=== PATIENT | male | born 1975 | race American Indian/Alaskan Native ===

== ENCOUNTER 2018-09-19 15:18 | Emergency (ER) | payer MEDICAID, MEDICARE ==
[2018-09-19 15:19] VITALS: BMI 26.9
--- NOTE | 2018-09-19 15:58 | ED PDOC ---
HPI: Psych/Substance Abuse Time Seen by Provider: 09/19/18 15:57 Chief Complaint (Nursing): Psychiatric Evaluation Chief Complaint (Provider): psych eval ED Caveat: Uncooperative History Per: Patient History/Exam Limitations: clinical condition, other Onset/Duration Of Symptoms: Days Current Symptoms Are (Timing): Still Present Suicide/Self Injury Attempted (Context): None Modifying Factor(s): None Associated Symptoms: Anger, Anxiety, Agitation, Depression, Paranoia. denies: Suicidal Thoughts, Suicidal Plan Additional History Per: Patient Additional Complaint(s): Pt presents via Pt is from [facility] with issues of exaccerbated anger and fighting in the [facility]; pt is well known to this ED and to the crisis counselors and has had several admits to psychiatric facilities that lasted greater than one year. Pt is uncooperative and provides no additional history Past Medical History Reviewed: Historical Data, Nursing Documentation, Vital Signs Vital Signs: Last Vital Signs Temp 98.0 F 09/19/18 15:26 Pulse 82 09/19/18 15:26 Resp 18 09/19/18 15:26 BP 151/85 H 09/19/18 15:26 Pulse Ox 97 09/19/18 15:26 - Medical History PMH: Anxiety, Asthma, Bipolar Disorder, Depression, HTN, Schizophrenia, Seizures (since he was 12 yo) Denies: Diabetes, Hepatitis, HIV, Chronic Kidney Disease, Sexually Transmitted Disease - Family History Family History: States: Unknown Family Hx - Immunization History Hx Tetanus Toxoid Vaccination: No Hx Influenza Vaccination: No Hx Pneumococcal Vaccination: No - Home Medications Home Medications: Ambulatory Orders Medication Instructions Recorded Benztropine [Cogentin] 1 mg PO AMHS #60 tab 11/16/17 Divalproex [Depakote DR(*BID*)] 500 mg PO AMHS #60 tcp 11/16/17 Nicotine [Nicotine Patch] 14 each TD DAILY #30 patch.dysq 11/16/17 Phenytoin, Extended [Dilantin] 100 mg PO TID #90 cer 11/16/17 clonazePAM [Klonopin] 1 mg PO AMHS #60 tab 11/16/17 risperiDONE [RisperDAL Tab] 2 mg PO AMHS #60 tab 11/16/17 - Allergies Allergies/Adverse Reactions: Allergies Allergy/AdvReac Type Severity Reaction Status Date / Time No Known Allergies Allergy Verified 11/07/17 20:52 Review of Systems Review Of Systems: ROS cannot be obtained secondary to pt's inabilty to answer questions. Physical Exam - Reviewed Nursing Documentation Reviewed: Yes Vital Signs Reviewed: Yes - Physical Exam Appears: Positive for: Well, No Acute Distress Head Exam: Positive for: ATRAUMATIC, NORMAL INSPECTION Skin: Positive for: Normal Color, Warm, Dry Neck: Positive for: Normal, Painless ROM, Supple. Negative for: Decreased ROM Cardiovascular/Chest: Positive for: Regular Rate, Rhythm, Chest Non Tender. Negative for: Edema, Gallop, Bradycardia, Tachycardia, Friction Rub Respiratory: Positive for: Normal Breath Sounds. Negative for: Decreased Breath Sounds, Accessory Muscle Use, Crackles, Rales, Rhonchi, Stridor, Wheezing Pulses-Carotid (L): 2+ Pulses-Carotid (R): 2+ - Laboratory Results Result Diagrams: 09/19/18 17:34 09/19/18 17:34 - ECG O2 Sat by Pulse Oximetry: 97 Medical Decision Making Medical Decision Making: Psych eval [place] [facility] [place] - Clinical Impression Clinical Impression: Schizoaffective disorder - Patient ED Disposition Is Patient to be Admitted: Yes Doctor Will See Patient In The: Hospital - Disposition Disposition: Transfer of Care Disposition Time: 20:13 Condition: STABLE Forms: A [facility] (Sinhala) Patient Signed Over To: Brigitte Porter
[2018-09-19 17:50] LABS: BASO % 0.4 % (0.0-2.0); EOS # 0.2 K/uL (0.0-0.7); EOS % 3.2 % (0.0-4.0); HEMOGLOBIN 14.2 g/dL (12.0-18.0); LYMPH # 1.9 K/uL (1.0-4.3); LYMPH % 32.9 % (20.0-40.0); MEAN CELL VOLUME 97.7 fl (80.0-94.0); MEAN CORPUSCULAR HEMOGLOBIN 32.4 pg (27.0-31.0); MEAN CORPUSCULAR HGB CONC 33.2 g/dL (33.0-37.0); MEAN PLATELET VOLUME 8.1 fl (7.2-11.7); MONO # 0.5 K/uL (0.0-0.8); MONO % 8.7 % (0.0-10.0); NEUT # 3.2 K/uL (1.8-7.0); NEUT % 54.8 % (50.0-75.0); NRBC % 0.1 % (0.0-0.0); RBC 4.37 Mil/uL (4.40-5.90); RED CELL DISTRIBUTION WIDTH 13.8 % (11.5-14.5); WHITE BLOOD COUNT 5.9 K/uL (4.8-10.8)
[2018-09-19 17:52] LABS: SQUAMOUS EPITHIAL < 1 /hpf (0-5); URINE AMORPHOUS SEDIMENT RARE /ul (<OCC); URINE BACTERIA RARE (<OCC); URINE BILIRUBIN NEGATIVE (NEGATIVE); URINE BLOOD NEGATIVE (NEGATIVE); URINE CLARITY SLIGHTY-CLOUDY (Clear); URINE COLOR YELLOW (YELLOW); URINE GLUCOSE (UA) NEG (NEGATIVE); URINE LEUKOCYTE ESTERASE NEG Leu/uL (Negative); URINE PROTEIN NEGATIVE (NEGATIVE)
[2018-09-19 17:53] LABS: ALB/GLOB RATIO 0.9 (1.0-2.1); ALBUMIN 3.8 g/dL (3.5-5.0); ALT/SGPT 48 U/L (21-72); AST/SGOT 41 U/L (17-59); BLOOD UREA NITROGEN 17 mg/dl (9-20); CALCIUM 8.6 mg/dL (8.4-10.2); GFR NON-AFRICAN AMERICAN > 60
[2018-09-19 17:55] LABS: DILANTIN (PHENYTOIN) 10.9 ug/ML (10-20)
[2018-09-19 17:57] LABS: VALPROIC ACID 26.7 ug/mL (50.0-100.0)
[2018-09-19 18:02] LABS: BARBITURATES, UR NEGATIVE (NEGATIVE)
[2018-09-19 18:24] LABS: BENZODIAZEPINES, UR NEGATIVE (NEGATIVE); OPIATES, UR NEGATIVE (NEGATIVE); PHENCYCLIDINE, UR NEGATIVE (NEGATIVE)
--- NOTE | 2018-09-20 00:33 | ED PDOC ---
- Laboratory Results Result Diagrams: 09/19/18 17:34 09/19/18 17:34 - ECG O2 Sat by Pulse Oximetry: 97 - Progress ED Course And Treament: RESTRAINTS RENEWED AT 23:30. PATIENT RE-EVALUATED. RESTRAINTS REMOVED AT 12:30AM HE IS SLEEPING CURRENTLY. SEEN BY [facility] SCREENER. TO BE COMMITED/ ADMITTED TO DR. HERNANDEZ AT [facility] Disposition - Clinical Impression Clinical Impression: Schizoaffective disorder - POA Present On Arrival: None - Disposition Disposition: Transfer of Care Disposition Time: 06:00 Condition: STABLE Patient Signed Over To: Harvey Holman Handoff Comments: PENDING [facility] BED
--- NOTE | 2018-09-20 09:40 | RAD ---
Date of service: 09/19/2018 PROCEDURE: CHEST RADIOGRAPH, 1 VIEW [place] [facility] [place] COMPARISON: None available. FINDINGS: LUNGS: The lungs are well inflated and clear. PLEURA: No pneumothorax or pleural effusion. CARDIOVASCULAR: The heart is normal in size. No aortic atherosclerotic calcifications present. OSSEOUS STRUCTURES: Within normal limits for the patient's age. VISUALIZED UPPER ABDOMEN: Normal. OTHER FINDINGS: None. IMPRESSION: No active pulmonary disease.
--- NOTE | 2018-09-20 11:28 | CARD ---
APPROVED REPORT Date of service: 09/19/2018 EKG Measurement Heart [id number] <Conclusion> Normal sinus rhythm Normal ECG
--- NOTE | 2018-09-20 12:49 | CP.PCM.CON ---
History of Present Illness - History of Present Illness History of Present Illness: face to face evaluation pt is a 43 ys old male with previous psychiatric diagnosis of schizoaffective disorder , brought to ER by alf after being threatening aggressive and assaultive towards staff pt on evaluation, uncooperative poor eye contact, refusing to respond to questions, hyperactive and irritable , internally preoccupied appears responding to internal stimuli Past Patient History - Infectious Disease Hx of Infectious Diseases: None - Tetanus Immunizations Tetanus Immunization: Unknown - Past Social History Smoking Status: Heavy Smoker > 10 Cigarettes Daily - CARDIAC Hx Hypertension: Yes - PULMONARY Hx Asthma: Yes - NEUROLOGICAL Hx Seizures: Yes (since he was 12 yo) - HEENT Hx HEENT Problems: No - RENAL Hx Chronic Kidney Disease: No - ENDOCRINE/METABOLIC Hx Endocrine Disorders: No - HEMATOLOGICAL/ONCOLOGICAL Hx Human Immunodeficiency Virus (HIV): No - INTEGUMENTARY Hx Dermatological Problems: No - MUSCULOSKELETAL/RHEUMATOLOGICAL Hx Musculoskeletal Disorders: No - GASTROINTESTINAL Hx Gastrointestinal Disorders: No - GENITOURINARY/GYNECOLOGICAL Hx Sexually Transmitted Disorders: No - PSYCHIATRIC Hx Anxiety: Yes Hx Bipolar Disorder: Yes Hx Depression: Yes Hx Schizophrenia: Yes - SURGICAL HISTORY Other/Comment: unable to assess due to psychotic behavior - ANESTHESIA Hx Anesthesia: No Hx Anesthesia Reactions: No Hx Malignant Hyperthermia: No Meds Allergies/Adverse Reactions: Allergies Allergy/AdvReac Type Severity Reaction Status Date / Time No Known Allergies Allergy Verified 11/07/17 20:52 Results - Vital Signs Recent Vital Signs: Last Vital Signs Temp 98.3 F 09/20/18 12:04 Pulse 90 09/20/18 12:04 Resp 19 09/20/18 12:04 BP 146/92 H 09/20/18 12:04 Pulse Ox 97 09/20/18 12:04 - Labs Result Diagrams: 09/19/18 17:34 09/19/18 17:34 Labs: Laboratory Results - last 24 hr 09/19/18 09/19/18 09/19/18 17:34 17:34 17:34 WBC 5.9 RBC 4.37 L Hgb 14.2 Hct 42.7 MCV 97.7 H D MCH 32.4 H MCHC 33.2 RDW 13.8 Plt Count 235 D MPV 8.1 Neut % (Auto) 54.8 Lymph % (Auto) 32.9 [place] % (Auto) 8.7 Eos % (Auto) 3.2 Baso % (Auto) 0.4 Neut # (Auto) 3.2 Lymph # (Auto) 1.9 [place] # (Auto) 0.5 Eos # (Auto) 0.2 Baso # (Auto) 0.0 Sodium 139 Potassium 4.2 Chloride 106 Carbon Dioxide 25 Anion Gap 12 BUN 17 Creatinine 0.8 Est GFR ( Amer) > 60 Est GFR (Non-Af Amer) > 60 Random Glucose 73 L Calcium 8.6 Total Bilirubin 0.4 AST 41 ALT 48 Alkaline Phosphatase 91 Total Protein 7.8 Albumin 3.8 Globulin 4.0 H Albumin/Globulin Ratio 0.9 L Urine Color Urine Clarity Urine pH Ur Specific [place] Urine Protein Urine Glucose (UA) Urine Ketones Urine Blood Urine Nitrate Urine Bilirubin Urine Urobilinogen Ur Leukocyte Esterase Urine RBC (Auto) Ur Squamous Epith Cells Amorphous Sediment Urine Bacteria Urine Opiates Screen Urine Methadone Screen Ur Barbiturates Screen Phenytoin 10.9 Valproic Acid 26.7 L Ur Phencyclidine Scrn Ur Amphetamines Screen U Benzodiazepines Scrn U Oth Cocaine Metabols U Cannabinoids Screen Alcohol, Quantitative 09/19/18 09/19/18 09/19/18 17:37 17:37 22:03 WBC RBC Hgb Hct MCV MCH MCHC RDW Plt Count MPV Neut % (Auto) Lymph % (Auto) [place] % (Auto) Eos % (Auto) Baso % (Auto) Neut # (Auto) Lymph # (Auto) [place] # (Auto) Eos # (Auto) Baso # (Auto) Sodium Potassium Chloride Carbon Dioxide Anion Gap BUN Creatinine Est GFR ( Amer) Est GFR (Non-Af Amer) Random Glucose Calcium Total Bilirubin AST ALT Alkaline Phosphatase Total Protein Albumin Globulin Albumin/Globulin Ratio Urine Color Yellow Urine Clarity Slighty-cloudy Urine pH 6.0 Ur Specific [place] 1.024 Urine Protein Negative Urine Glucose (UA) Neg Urine Ketones Negative Urine Blood Negative Urine Nitrate Negative Urine Bilirubin Negative Urine Urobilinogen 2.0 Ur Leukocyte Esterase Neg Urine RBC (Auto) 1 Ur Squamous Epith Cells < 1 Amorphous Sediment Rare H Urine Bacteria Rare Urine Opiates Screen Negative Urine Methadone Screen Negative Ur Barbiturates Screen Negative Phenytoin Valproic Acid Ur Phencyclidine Scrn Negative Ur Amphetamines Screen Negative U Benzodiazepines Scrn Negative U Oth Cocaine Metabols Negative U Cannabinoids Screen Negative Alcohol, Quantitative < 10 Assessment & Plan - Assessment and Plan (Free Text) Assessment: schizoaffective disorder bipolar Plan: pt at current mental status floridly psychotic and aggressive , danger to self and others, refusing treatment and refusing voluntary admission referred [place] [facility] [place] for stabilization recommend haldol 5mg po q6prn for agitation ativan 2mg po q6prn for anxiety benadryl 50mg po q6 prn for EPS
[2018-09-20 12:52] LABS: BARBITURATES, UR NEGATIVE (NEGATIVE); BENZODIAZEPINES, UR NEGATIVE (NEGATIVE); OPIATES, UR NEGATIVE (NEGATIVE); PHENCYCLIDINE, UR NEGATIVE (NEGATIVE)
[2018-09-20] MEDS ORDERED: DiphenhydrAMINE 50 mg/ml Inj IM STA (13:05)
[2018-09-20] MEDS ORDERED: DiphenhydrAMINE 50 mg/ml Inj ONE (13:57)
[2018-09-20 14:54] VITALS: RESP 18; O2SAT 98
--- NOTE | 2018-09-20 17:14 | ED PDOC ---
- Laboratory Results Result Diagrams: 09/19/18 17:34 09/19/18 17:34 - ECG O2 Sat by Pulse Oximetry: 98 - Progress ED Course And Treament: 5p Pending bed at [facility] for involuntary psych 620p Informed by nurse bed available for transfer. Orders placed for transfer. Disposition - Clinical Impression Clinical Impression: Schizoaffective disorder - POA Present On Arrival: None - Disposition Disposition: Other Institution Disposition Time: 18:20 Condition: STABLE Forms: [facility] [facility] (Telugu)
[2018-09-20 21:52] VITALS: BP 156/76; PULSE 85; TEMP 98.3
== END 2018-09-20 22:37 | disposition short-term general hospital (02) ==
LOC: H.ER 15:18
DX: F25.9 Schizoaffective disorder, unspecified (principal); F31.9 Bipolar disorder, unspecified; F17.210 Nicotine dependence, cigarettes, uncomplicated; F41.9 Anxiety disorder, unspecified; I10 Essential (primary) hypertension; J45.909 Unspecified asthma, uncomplicated
CPT/HCPCS: 71045; 80053; 80164; 80185; 81003; 85025; 93005; 96372; 99285; G0480; J1200; J1630; J2060